=== PATIENT | female | born 1985 | race American Indian/Alaskan Native ===

== ENCOUNTER 2019-12-06 15:33 | Emergency (ER) | payer SELFPAY ==
[2019-12-06 15:43] VITALS: BP 150/98
--- NOTE | 2019-12-06 18:09 | Emergency Department Report ---
Chief Complaint: Fall Stated Complaint: LEFT FOOT Time Seen by Provider: 12/06/19 18:04 - HPI History of Present Illness: 34 yo female who twisted left ankle while stepping down the steps. - Exam Vital Signs: Vital Signs 12/06/19 15:39 Temperature 98.1 F Pulse Rate 92 H Respiratory 18 Rate Blood Pressure 150/98 O2 Sat by Pulse 99 Oximetry Physical Exam: no edema, no bony tenderness, tenderness anterior inferior to the left lateral malleolus MSE screening note: Focused history and physical exam performed. Due to findings the following was ordered: ED Medical Decision Making - Medical Decision Making mild left ankle sprain, given mile wrap by nurse. After application of mile wrap to left ankle, normal alignment NVI ED Disposition for MSE Clinical Impression: Left ankle sprain Disposition: TO HOME OR SELFCARE Is pt being admited?: No Does the pt Need Aspirin: No Condition: Stable Instructions: Ankle Sprain (ED) Referrals: DUY MADISON MD [Staff Physician] - 3-5 Days
== END 2019-12-06 18:14 | disposition home or self-care (01) ==
LOC: ED 15:33
DX: S93.492A Sprain of other ligament of left ankle, initial encounter (principal); X58.XXXA Exposure to other specified factors, initial encounter; Y93.89 Activity, other specified; Y92.89 Other specified places as the place of occurrence of the external cause; Y99.8 Other external cause status
CPT/HCPCS: 99282